=== PATIENT | female | born 1945 | race Two or more races ===

== ENCOUNTER 2021-08-12 12:35 | Emergency (ER) | payer OTHER ==
[~2021-08-12] VITALS: Ht 154.9 cm; Wt 67.1 kg
[2021-08-12] MEDS ORDERED: AMLODIPINE-OLM1 EACH PO (12:56)
[2021-08-12] MEDS ORDERED: CANDESARTAN CILE8 MG PO (12:56)
== END 2021-08-12 15:38 | disposition home or self-care (01) ==
LOC: ER 12:35
DX: R10.84 Generalized abdominal pain (principal); R10.2 Pelvic and perineal pain; K57.90 Diverticulosis of intestine, part unspecified, without perforation or abscess without bleeding; I10 Essential (primary) hypertension